=== PATIENT | male | born 1980 | race African-American/Black ===

== ENCOUNTER 2025-02-12 12:43 | Emergency (ER) | payer BC, SELFPAY ==
[2025-02-12] VITALS (45 sets, daily range): BP systolic 109–150; BP diastolic 64–106; PULSE 60–86; TEMP 36.8; O2SAT 91–100; BMI 34.9
--- NOTE | 2025-02-12 13:07 | ECG_ITS ---
[facility] Test Date: 2025-02-12 Pat Name: ETHEL MANTILLA Department: Room: - Gender: Male Hall Manager: : 1980 Requested By: [id number] Order Number: [id number] Reading MD: LISA HART M.D. Measurements Intervals [place] Rate: 72 P: 55 [place]: 172 QRS: 67 QRSD: 90 T: -30 QT: 356 QTc: 380 Interpretive Statements 1100 Sinus rhythm 4068 Nonspecific Twave abnormality Abnormal ECG No previous ECG available for comparison Electronically Signed On 02-13-2025 20:07:32 EDT by LISA HART M.D.
--- NOTE | 2025-02-12 13:10 | ED_ITS ---
HPI - Chest Pain General Chief Complaint: Chest Pain Stated Complaint: SOB CHEST PAINS Time Seen by Provider: 02/12/25 13:04 Source: patient Mode of arrival: Wheelchair History of Present Illness HPI narrative: 44 year old male presents to the ED for left-sided chest pain. Onset was today while exercising. Reports SOB and an episode of emesis at the onset. Denies fever, chills, dizziness, cough, abd pain, back pain. Denies recent travel or surgery. Denies cardiac history. He was doing burpees at the onset which is not out of the ordinary for him. He does not smoke or use illicit drugs. Reports minimal alcohol use. Denies CP currently. MD complaint: Reports chest pain Related Data Home Medications ?Medication ?Instructions ?Recorded ?Confirmed No Known Home Medications 02/12/25 02/12/25 Allergies Allergy/AdvReac Type Severity Reaction Status Date / Time No Known Drug Allergies Allergy Verified 02/12/25 12:55 Review of Systems ROS Constitutional Denies: fever or chills Ears, nose, mouth, and throat Denies: neck pain Cardiovascular Reports: chest pain; Denies: palpitations, edema or lightheadedness Respiratory Reports: shortness of breath; Denies: cough Gastrointestinal Reports: nausea and vomiting; Denies: abdominal pain or diarrhea Musculoskeletal Denies: back pain or neck pain Neurological Denies: headache or dizziness PFSH PFSH Social History Little interest or pleasure in doing things: not at all Feeling down, depressed, or hopeless: not at all Exam Constitutional Vital Signs, click to edit/add: Last Vital Signs Temp 98.2 F 02/12/25 12:55 Pulse 86 02/12/25 17:00 Resp 15 02/12/25 17:00 BP 125/97 H 02/12/25 17:00 Pulse Ox 99 02/12/25 17:00 O2 Del Method Room Air 02/12/25 12:55 Common normals: no apparent distress and oriented x3 General appearance: cooperative Eye Common normals: conjunctivae normal and no scleral icterus Neck & C-Spine Common normals: supple Chest Common normals: palpation of chest normal Chest: symmetrical chest wall rise Respiratory Common normals: normal respiratory effort, no retractions and clear to ausculta tion bilaterally Effort & inspection: able to speak in complete sentences and symmetric chest movement Cardio Common normals: regular rate and regular rhythm Neuro Common normals: oriented x3 and moves all extremities Sensorium/orientation: awake and alert Course Vital Signs Vital signs: Vital Signs Pulse Rate 81 02/12/25 12:52 Respiratory Rate 20 02/12/25 12:52 Temperature 98.2 F 02/12/25 12:55 Pulse Rate 86 02/12/25 17:00 Respiratory Rate 15 02/12/25 17:00 Blood Pressure 125/97 H 02/12/25 17:00 Pulse Oximetry 99 02/12/25 17:00 Oxygen Delivery Method Room Air 02/12/25 12:55 MDM - Chest Pain MDM Narrative Medical decision making narrative: Initial troponin was 48.2, repeat 217.5. Chest x-ray showed no acute findings. Findings were discussed with the patient. He was given 324 mg asa here. He was started on a Heparin drip. The patient denied pain here. He will be transferred to [facility] for further evaluation and treatment by cardiology. The patient was in agreement with the transfer. I spoke with Dr. Strong for internal medicine at [facility]; he agreed to accept the patient for transfer. A full and detailed handoff report was given. The patient and his were updated. Differential Diagnosis Differential diagnosis: Likely stable angina, unstable angina pectoris, atypical chest pain, st elevation myocardial infarction and other Medical Records Data Attestation: I reviewed the patient's medical records. Lab Data Attestation: I reviewed the patient's lab results. Labs: Lab Results 02/12/25 02/12/25 Range/Units 13:05 14:44 WBC 6.3 (4.0-11.0) 10^3/uL RBC 5.63 (4.70-6.10) 10^6/uL Hgb 15.9 (14.0-18.0) g/dL Hct 45.5 (42.0-54.0) % MCV 80.8 (80.0-94.0) fL MCH 28.2 (25.9-34.0) pg MCHC 34.9 (29.9-35.2) g/dL RDW 13.6 (11.0-15.0) % Plt Count 204 (150-450) 10^3/uL MPV 9.6 (9.5-13.5) fL Neut % (Auto) 56.4 (43.0-75.0) % Lymph % (Auto) 32.9 (20.5-60.0) % [place]he % (Auto) 8.3 (1.7-12.0) % Eos % (Auto) 1.0 (0.9-7.0) % Baso % (Auto) 0.3 (0.2-2.0) % Neut # (Auto) 3.5 (1.4-6.5) 10^3/uL Lymph # (Auto) 2.1 (1.2-3.8) 10^3/uL [place] # (Auto) 0.5 (0.3-0.8) 10^3/uL Eos # (Auto) 0.1 (0.0-0.7) 10^3/uL Baso # (Auto) 0.0 (0.0-0.1) 10^3/uL Abs Immat Gran (auto) 0.07 H (0.00-0.03) 10^3/uL Imm/Tot Granulo (auto) 1.1 H (0.0-0.5) % PT 11.1 (9.0-11.6) sec INR 1.05 APTT 24.8 (22.3-36.2) sec Sodium 139 (136-145) mmol/L Potassium 3.6 (3.5-5.1) mmol/L Chloride 104 (98-107) mmol/L Carbon Dioxide 26.6 (21.0-32.0) mmol/L Anion Gap 12.0 BUN 15.0 (7.0-18.0) mg/dL Creatinine 1.40 H (0.70-1.30) mg/dL Est GFR ( Amer) >60 (>=60 mL/min/1.73m^2) Est GFR (Non-Af Amer) 55 L (>=60 mL/min/1.73m^2) BUN/Creatinine Ratio 10.7 Glucose 131 H (74-106) mg/dL Calcium 8.9 (8.5-10.1) mg/dL Troponin I High Sens 48.2 217.5 H* (4.0-76.1) pg/mL Imaging Data Chest x-ray: Attestation: I have reviewed the pertinent imaging results. Radiologist's impression: No acute cardiopulmonary process. ECG Data Attestation: ?I have reviewed the pertinent ECG results. (EKG was reviewed by the attending physician. It showed sinus rhythm at a rate of 72. No STEMI.) Interpretation: Measurements Intervals [place] Rate: 72 P: 55 [place]: 172 QRS: 67 QRSD: 90 T: -30 QT: 356 QTc: 380 Interpretive Statements 1100 Sinus rhythm 4068 Nonspecific Twave abnormality 9130 borderline ECG No previous ECG available for comparison Critical Care Time Critical Care Time Critical Care Time: Yes Total Critical Care Time: 35 Attestation: Due to the high probability of sudden and clinically significant deterioration in the patient's condition he required the highest level of my preparedness to intervene urgently, I provided critical care time including documentation time, medication orders and management, reevaluation, vital sign assessment, ordering and reviewing of lab tests, and ordering and reviewing of x-ray studies. Discharge Plan Discharge Chief Complaint: Chest Pain Clinical Impression: Acute non-ST elevation myocardial infarction (NSTEMI) Prescriptions / Home Meds: No Action No Known Home Medications Print Language: Citizen Of [place] Referrals: Physician,Non-Staff, [Primary Care Provider] - 1 week
[2025-02-12 13:18] LABS: Basophils Percent Auto 0.3 % (0.2-2.0); Eosinophils Absolute Auto 0.1 10^3/uL (0.0-0.7); Hematocrit 45.5 % (42.0-54.0); Hemoglobin 15.9 g/dL (14.0-18.0); Immature Granulocytes Abs Auto 0.07 10^3/uL (0.00-0.03); Immature Granulocytes Pct Auto 1.1 % (0.0-0.5); Lymphocytes Absolute Auto 2.1 10^3/uL (1.2-3.8); Lymphocytes Percent Auto 32.9 % (20.5-60.0); Mean Corpuscular HGB Conc 34.9 g/dL (29.9-35.2); Mean Corpuscular Hemoglobin 28.2 pg (25.9-34.0); Mean Corpuscular Volume 80.8 fL (80.0-94.0); Mean Platelet Volume 9.6 fL (9.5-13.5); Monocytes Absolute Auto 0.5 10^3/uL (0.3-0.8); Monocytes Percent Auto 8.3 % (1.7-12.0); Neutrophils Absolute Auto 3.5 10^3/uL (1.4-6.5); Neutrophils Percent Auto 56.4 % (43.0-75.0); Platelet Count 204 10^3/uL (150-450); Red Blood Count 5.63 10^6/uL (4.70-6.10); Red Cell Distribution Width 13.6 % (11.0-15.0); White Blood Count 6.3 10^3/uL (4.0-11.0)
[2025-02-12] MEDS: ASPIRIN 81 MG TAB.CHEW 324 MG PO (13:27)
[2025-02-12 13:35] LABS: BUN Creatinine Ratio 10.7; Calcium 8.9 mg/dL (8.5-10.1); Carbon Dioxide 26.6 mmol/L (21.0-32.0); Chloride 104 mmol/L (98-107); Estimated GFR (African America >60 (>=60 mL/min/1.73m^2); Estimated GFR (Non-African Ame 55 (>=60 mL/min/1.73m^2); Glucose 131 mg/dL (74-106); Potassium 3.6 mmol/L (3.5-5.1); Sodium 139 mmol/L (136-145); Troponin I High Sensitivity 48.2 pg/mL (4.0-76.1)
[2025-02-12 15:17] LABS: Troponin I High Sensitivity 217.5 pg/mL (4.0-76.1)
[2025-02-12 15:34] LABS: INR 1.05; Partial Thromboplastin Time 24.8 sec (22.3-36.2); Prothrombin Time 11.1 sec (9.0-11.6)
[2025-02-12] MEDS: HEPARIN SODIUM (PORCINE) 5,000 UNIT/ML VIAL 4000 UNIT IV (15:45)
[2025-02-12] MEDS: HEPARIN SODIUM,PORCINE/D5W 25,000 UNIT/500 ML IV.SOLN 20 UNIT IV (15:47)
== END 2025-02-12 18:00 | disposition short-term general hospital (02) ==
PROVIDERS: Nurse Practitioner Family; Emergency Provider Emergency Medicine
DX: I21.4 Non-ST elevation (NSTEMI) myocardial infarction (principal)
CPT/HCPCS: 36415; 71045; 80048; 84484; 85025; 85610; 85730; 93005; 96365; 96366; 96376; 99285; J1644